=== PATIENT | male | born 2000 | race Caucasian/White ===

== ENCOUNTER 2020-03-18 22:42 | Emergency (ER) | payer SELFPAY ==
--- OUTSIDE RECORDS SUMMARY | 2020-03-18 22:44 | XMS REPORT | Continuity of Care Document ---
:2000 Author Organization [facility] t Address [facility] [place] [address] Care Team Providers Name Role Phone Unavailable Unavailable Unavailable Problems This patient has no known problems. Allergies, Adverse Reactions, Alerts This patient has no known allergies or adverse reactions. Medications This patient has no known medications. Procedures This patient has no known procedures. Results This patient has no known results.
--- NOTE | 2020-03-18 23:28 | ER ---
Nurse's Notes [facility] Name: Ino Lewis Age: 19 yrs Sex: Male : 2000 Arrival Date: 03/18/2020 Time: 22:45 Bed 17 Private MD: None, None Diagnosis: Allergic contact dermatitis;Allergic contact dermatitis due to animal (cat) (dog) dander-horse Presentation: 03/18 22:58 Chief complaint: Patient states: Around horses yesterday. Started to have watery red, ll1 itchy eyes. Rash to scalp and face. Symptoms continue today./. Coronavirus screen: Proceed with normal triage. Patient denies a cough. Patient denies shortness of breath or difficulty breathing. Patient denies measured and/or subjective temperature greater than 100.4F prior to today's visit. Patient denies travel on a cruise ship or to a country the [facility] currently lists as an affected area. Patient denies contact with known and/or suspected case of COVID-19. Ebola Screen: Patient denies travel to an Ebola-affected area in the 21 days before illness onset. Onset: The symptoms/episode began/occurred yesterday. Anaphylaxis evaluation, no signs or symptoms of anaphylaxis were noted. Initial Sepsis Screen: Does the patient meet any 2 criteria? No. Patient's initial sepsis screen is negative. Risk Assessment: Do you want to hurt yourself or someone else? Patient reports no desire to harm self or others. Onset of symptoms was March 17, 2020. 22:58 Method Of Arrival: Ambulatory ll1 22:58 Acuity: EVONNE 3 ll1 23:15 Initial Sepsis Screen: Does the patient have a suspected source of infection? No. vc Patient's initial sepsis screen is negative. Triage Assessment: 23:15 General: Appears in no apparent distress. uncomfortable, Behavior is calm, cooperative, vc appropriate for age. Historical: - Allergies: 23:00 No Known Allergies; ll1 - PSHx: 23:00 None; ll1 - Immunization history:: Last tetanus immunization: unknown, Flu vaccine is not up to date. - Social history:: Smoking status: Reported history of juuling and/or vaping. Patient uses alcohol, only on a social basis. weekly. Patient/guardian denies using street drugs. Screenin:15 Abuse screen: Denies threats or abuse. Nutritional screening: No deficits noted. vc Tuberculosis screening: No symptoms or risk factors identified. Fall Risk None identified. Assessment: 23:15 Pain: Denies pain. Respiratory: Airway is patent Respiratory effort is even, unlabored, vc Breath sounds are clear bilaterally. 23:15 General: Appears in no apparent distress. uncomfortable, Behavior is calm, cooperative, vc appropriate for age. Neuro: Level of Consciousness is awake, alert, obeys commands, Oriented to person, place, time, situation, Appropriate for age. Cardiovascular: Capillary refill < 3 seconds Patient's skin is warm and dry. GI: No signs and/or symptoms were reported involving the gastrointestinal system. : No signs and/or symptoms were reported regarding the genitourinary system. EENT: Eyes are tearing on inner aspect of conjuctiva of right eye and inner aspect of conjunctiva of left eye Sclera/Cornea are reddened in inner aspect of conjuctiva of right eye and inner aspect of conjunctiva of left eye Nares with drainage noted Reports nasal congestion nasal discharge. 23:55 Reassessment: Patient appears in no apparent distress at this time. Patient and/or vc family updated on plan of care and expected duration. Pain level reassessed. Patient is alert, oriented x 3, equal unlabored respirations, skin warm/dry/pink. Patient denies pain at this time. Patient states feeling better. Patient states symptoms have improved. Vital Signs: 22:58 Pulse 83; Resp 17; Temp 99.1; Pulse Ox 98% ; Weight 80.74 kg; Height 5 ft. 6 in. ll1 (167.64 cm); Pain 0/10; 22:58 Body Mass Index 28.73 (80.74 kg, 167.64 cm) ll1 ED Course: 22:45 Patient arrived in ED. mr 22:45 None, None is Private Physician. mr 23:00 Triage completed. ll1 23:01 Arm band placed on Patient placed in an exam room, on a stretcher. ll1 23:02 Franko Hoffmann MD is Attending Physician. [facility] 23:15 Patient has correct armband on for positive identification. Bed in low position. Call vc light in reach. 23:24 Cheryl Purcell, ANDRE is Primary Nurse. vc 23:58 No provider procedures requiring assistance completed. Patient did not have IV access vc during this emergency room visit. Administered Medications: 23:34 Drug: Benadryl 50 mg Route: PO; vc 23:34 Drug: Pepcid 40 mg Route: PO; vc 23:34 Drug: predniSONE 60 mg Route: PO; vc Outcome: 23:28 Discharge ordered by . kay 23:58 Patient left the ED. vc 23:58 Discharged to home ambulatory, with significant other. 23:58 Condition: good 23:58 Discharge instructions given to patient, Instructed on discharge instructions, follow up and referral plans. no drinking with medication, no driving heavy equipment, medication usage, Demonstrated understanding of instructions, follow-up care, medications, Prescriptions given X 4. Signatures: Franko Hoffmann MD MD cha Rivera, Mary mr Calcote, Vanessa, RN RN vc Lewis, Lynsay, RN RN ll1
--- NOTE | 2020-03-18 23:28 | EDPHYS ---
Physician Documentation [facility] Name: Ino Lewis Age: 19 yrs Sex: Male : 2000 Arrival Date: 03/18/2020 Time: 22:45 Bed 17 Private MD: None, None ED Physician Franko Hoffmann HPI: 03/18 23:23 This 19 yrs old Male presents to ER via Ambulatory with complaints of kay Allergic Reaction. 23:23 The patient presents with difficulty swallowing, itching, localized swelling, rash, kay redness of skin, swelling of the lips. Onset: The symptoms/episode began/occurred 1 day(s) ago. Associated signs and symptoms: Pertinent positives: rash, swelling. Possible causes: horses. At home the patient or guardian has treated the symptoms with Benadryl. Severity of symptoms: At their worst the symptoms were mild moderate in the emergency department the symptoms are unchanged. The patient has not experienced similar symptoms in the past. Historical: - Allergies: 23:00 No Known Allergies; ll1 - PSHx: 23:00 None; ll1 - Immunization history:: Last tetanus immunization: unknown, Flu vaccine is not up to date. - Social history:: Smoking status: Reported history of juuling and/or vaping. Patient uses alcohol, only on a social basis. weekly. Patient/guardian denies using street drugs. ROS: 23:24 Constitutional: Negative for fever, chills, and weight loss, Neck: Negative for injury, kay pain, and swelling, Cardiovascular: Negative for chest pain, palpitations, and edema, Respiratory: Negative for shortness of breath, cough, wheezing, and pleuritic chest pain, Abdomen/GI: Negative for abdominal pain, nausea, vomiting, diarrhea, and constipation, Back: Negative for injury and pain, : Negative for injury, bleeding, discharge, and swelling, MS/Extremity: Negative for injury and deformity, Skin: Negative for injury, rash, and discoloration, Neuro: Negative for headache, weakness, numbness, tingling, and seizure, Psych: Negative for depression, anxiety, suicide ideation, homicidal ideation, and hallucinations, Allergy/Immunology: Negative for hives, rash, and allergies, Endocrine: Negative for neck swelling, polydipsia, polyuria, polyphagia, and marked weight changes, Hematologic/Lymphatic: Negative for swollen nodes, abnormal bleeding, and unusual bruising. 23:24 Eyes: Positive for itching, redness. 23:24 ENT: Positive for rhinorrhea, sinus congestion, sore throat. 23:24 Neck: Positive for swollen nodes. 23:24 Cardiovascular: 23:24 Skin: Positive for erythema, swelling. Exam: 23:24 Constitutional: This is a well developed, well nourished patient who is awake, alert, kay and in no acute distress. Eyes: Pupils equal round and reactive to light, extra-ocular motions intact. Lids and lashes normal. Conjunctiva and sclera are non-icteric and not injected. Cornea within normal limits. Periorbital areas with no swelling, redness, or edema. ENT: Nares patent. No nasal discharge, no septal abnormalities noted. Tympanic membranes are normal and external auditory canals are clear. Oropharynx with no redness, swelling, or masses, exudates, or evidence of obstruction, uvula midline. Mucous membranes moist. Neck: Trachea midline, no thyromegaly or masses palpated, and no cervical lymphadenopathy. Supple, full range of motion without nuchal rigidity, or vertebral point tenderness. No Meningismus. Chest/axilla: Normal chest wall appearance and motion. Nontender with no deformity. No lesions are appreciated. Cardiovascular: Regular rate and rhythm with a normal S1 and S2. No gallops, murmurs, or rubs. Normal PMI, no JVD. No pulse deficits. Respiratory: Lungs have equal breath sounds bilaterally, clear to auscultation and percussion. No rales, rhonchi or wheezes noted. No increased work of breathing, no retractions or nasal flaring. Abdomen/GI: Soft, non-tender, with normal bowel sounds. No distension or tympany. No guarding or rebound. No evidence of tenderness throughout. Back: No spinal tenderness. No costovertebral tenderness. Full range of motion. Male : Normal genitalia with no discharge or lesions. MS/ Extremity: Pulses equal, no cyanosis. Neurovascular intact. Full, normal range of motion. Neuro: Awake and alert, GCS 15, oriented to person, place, time, and situation. Cranial nerves II-XII grossly intact. Motor strength 5/5 in all extremities. Sensory grossly intact. Cerebellar exam normal. Normal gait. Psych: Awake, alert, with orientation to person, place and time. Behavior, mood, and affect are within normal limits. 23:24 Head/face: Noted is rash, that is erythematous. 23:24 Eyes: Periorbital structures: appear normal, no acute changes, Pupils: no acute changes, Extraocular movements: intact throughout, Conjunctiva: injected, bilaterally, Sclera: injected. 23:24 ENT: Posterior pharynx: swelling, that is mild, erythema, that is mild, that is moderate. 23:24 Respiratory: the patient does not display signs of respiratory distress, Respirations: no acute changes, Breath sounds: are clear throughout, Respiratory rate: 16 Vital Signs: 22:58 Pulse 83; Resp 17; Temp 99.1; Pulse Ox 98% ; Weight 80.74 kg; Height 5 ft. 6 in. ll1 (167.64 cm); Pain 0/10; 22:58 Body Mass Index 28.73 (80.74 kg, 167.64 cm) ll1 MDM: 23:02 Patient medically screened. [facility] 23:27 Data reviewed: vital signs, nurses notes. kay 23:29 Differential diagnosis: anaphylaxis, angioedema, bronchospasm, urticaria. Data kay interpreted: playground monitor: rate is 83 beats/min, Pulse oximetry: on room air is 98 %. Counseling: I had a detailed discussion with the patient and/or guardian regarding: the historical points, exam findings, and any diagnostic results supporting the discharge/admit diagnosis, lab results, the need for outpatient follow up, for definitive care. Medication response: benadryl, pepcid, prednisone. Administered Medications: 23:34 Drug: Benadryl 50 mg Route: PO; vc 23:34 Drug: Pepcid 40 mg Route: PO; vc 23:34 Drug: predniSONE 60 mg Route: PO; vc Disposition: 03/18/20 23:28 Discharged to Home. Impression: Allergic contact dermatitis, Allergic contact dermatitis due to animal (cat) (dog) dander - horse. - Condition is Stable. - Discharge Instructions: Allergies, Adult, Contact Dermatitis, Rash, Rash, [id number], Contact Dermatitis, [id number], Allergies, [id number]. - Prescriptions for Benadryl 25 mg Oral Capsule - take 2 capsule by ORAL route every 6 hours As needed; 30 tablet. Amoxicillin 500 mg Oral Capsule - take 1 capsule by ORAL route every 8 hours for 10 days; 30 tablet. Prednisone 20 mg Oral Tablet - take 2 tablet by ORAL route once daily for 5 days; 10 tablet. Pepcid 20 mg Oral Tablet - take 1 tablet by ORAL route every 12 hours; 20 tablet. - Medication Reconciliation Form, Thank You Letter, Antibiotic Education, Prescription Opioid Use, Work release form form. - Follow up: Private Physician; When: 2 - 3 days; Reason: Recheck today's complaints, Continuance of care, Re-evaluation by your physician. - Problem is new. - Symptoms have improved. Signatures: Franko Hoffmann MD MD cha Calcote, Vanessa, RN RN Monse Villatoro RN RN ll1 Corrections: (The following items were deleted from the chart) 23:58 23:28 03/18/2020 23:28 Discharged to Home. Impression: Allergic contact dermatitis; vc Allergic contact dermatitis due to animal (cat) (dog) dander - horse. Condition is Stable. Forms are Medication Reconciliation Form, Thank You Letter, Antibiotic Education, Prescription Opioid Use. Follow up: Private Physician; When: 2 - 3 days; Reason: Recheck today's complaints, Continuance of care, Re-evaluation by your physician. Problem is new. Symptoms have improved. kay
[2020-03-18] MEDS ORDERED: DIPHENHYDRAMINE 25 MG TAB/CAP ONE (23:37)
[2020-03-18] MEDS ORDERED: FAMOTIDINE 20 MG TAB ONE ×2 (23:38→23:39)
[2020-03-18] MEDS ORDERED: predniSONE 20 MG TAB ONE (23:38)
[2020-03-19 00:19] VITALS: TEMP 99.1; O2SAT 98
== END 2020-03-18 23:58 | disposition home or self-care (01) ==
LOC: ER 22:42
DX: L23.81 Allergic contact dermatitis due to animal (cat) (dog) dander (principal); Z87.891 Personal history of nicotine dependence
CPT/HCPCS: 99283; J7512